=== PATIENT | female | born 1995 | race Caucasian/White ===

== ENCOUNTER 2016-09-26 18:09 | Emergency (ER) | payer MEDICAID ==
[~2016-09-26] VITALS: Ht 175.3 cm; Wt 139.0 kg
[2016-09-27] MEDS ORDERED: ONDANSETRON HCL 4MG/2ML VIAL IV STA (01:17)
[2016-09-27] MEDS ORDERED: SODIUM CHLORIDE 0.9% 1,000 ML IV ONE (01:17)
[2016-09-27] MEDS ORDERED: HYDROCODONE/ACETAMINOPHEN 5/325MG TABLET PO ONE (01:30)
[2016-09-27 01:46] LABS: BASOPHILS % 0.7 % (0.0-2.0); EOSINOPHILS % 3.3 % (0.0-5.0); HEMATOCRIT. 27.3 % (36.0-48.0); HEMOGLOBIN. 8.7 g/dL (12.0-16.0); LYMPHOCYTES % 35.1 % (20.0-50.0); MEAN CORPUSCULAR HEMOGLOBIN 21.7 pg (28.0-32.0); MEAN CORPUSCULAR VOLUME 68.4 fL (81.0-99.0); MEAN PLATELET VOLUME 7.4 fl (7.4-10.4); MONOCYTES % 6.7 % (2.0-8.0); NEUTROPHILS % 54.2 % (40.0-76.0); PLATELET 328 x1000/uL (130-400); RED CELL DISTRIBUTION WIDTH 17.2 % (11.6-14.6)
[2016-09-27 01:52] LABS: CHLORIDE 107 mEq/L (98-107)
[2016-09-27 02:00] LABS: CARBON DIOXIDE 26 mEq/L (21-32)
[2016-09-27 02:10] LABS: PLATELET ESTIMATE NORMAL
[2016-09-27 02:46] LABS: GLUCOSE URINE NEGATIVE (NEGATIVE); KETONES URINE NEGATIVE (NEGATIVE); LEUKOCYTE ESTERASE URINE NEGATIVE (NEGATIVE); NITRITE URINE NEGATIVE (NEGATIVE); OCCULT BLOOD URINE NEGATIVE (NEGATIVE); PH URINE 6.5 (4.5-8.0); PROTEIN URINE NEGATIVE (NEGATIVE); SPECIFIC GRAVITY URINE 1.015 (1.005-1.030); UROBILINOGEN URINE 0.2 E.U./dL (0.2-1.0)
[2016-09-27 02:47] LABS: CLARITY URINE CLEAR (CLEAR); COLOR URINE YELLOW (YELLOW)
[2016-09-27 03:09] LABS: *AMPHETAMINES SCREEN URINE NEGATIVE (NEGATIVE); *BARBITURATES SCREEN URINE NEGATIVE (NEGATIVE); *BENZODIAZEPINES SCREEN URINE NEGATIVE (NEGATIVE); *COCAINE SCREEN URINE NEGATIVE (NEGATIVE); CANNABINOID URINE SCREEN NEGATIVE (NEGATIVE); METHADONE URINE SCREEN NEGATIVE (NEGATIVE); PHENCYCLIDINE URINE SCREEN NEGATIVE (NEGATIVE)
[2016-09-27 03:35] LABS: OPIATES URINE SCREEN PRESUMTIVE POSITIVE (NEGATIVE)
[2016-09-27] MEDS ORDERED: MORPHINE SULFATE 4 MG/ML CPJ (NOT FOR IM USE) IV ONE (04:15)
[2016-09-27 06:30] VITALS: BP 118/68
== END 2016-09-27 06:32 | disposition home or self-care (01) ==
LOC: ER 18:09
DX: R51 Headache (principal); R11.0 Nausea; J32.1 Chronic frontal sinusitis; H53.8 Other visual disturbances; J32.2 Chronic ethmoidal sinusitis; D50.9 Iron deficiency anemia, unspecified; F41.9 Anxiety disorder, unspecified; Z88.6 Allergy status to analgesic agent; Z88.8 Allergy status to other drugs, medicaments and biological substances
CPT/HCPCS: 36415; 70450; 70486; 72125; 80053; 80305; 81003; 81025; 85025; 96361; 96374; 96375; 99285; J2270; J2405; J7030

== ENCOUNTER 2016-10-17 18:47 | Emergency (ER) | payer SELFPAY ==
[~2016-10-17] VITALS: Ht 175.3 cm; Wt 141.0 kg
[2016-10-17 19:07] VITALS: BP 164/92
[2016-10-17] MEDS ORDERED: METOCLOPRAMIDE HCL 10MG TABLET PO ONE (20:00)
[2016-10-17] MEDS ORDERED: DIPHENHYDRAMINE 25MG CAPSULE PO ONE (20:00)
[2016-10-17] MEDS ORDERED: ACETAMINOPHEN 325MG TABLET PO ONE (20:00)
== END 2016-10-17 20:23 | disposition left against medical advice (07) ==
LOC: ER 19:07
DX: R51 Headache (principal); M25.562 Pain in left knee; F41.9 Anxiety disorder, unspecified; R03.0 Elevated blood-pressure reading, without diagnosis of hypertension; G43.909 Migraine, unspecified, not intractable, without status migrainosus; Z88.6 Allergy status to analgesic agent; E66.9 Obesity, unspecified; Z68.42 Body mass index [BMI] 45.0-49.9, adult; Z98.890 Other specified postprocedural states
CPT/HCPCS: 99281; J8597; Q0163